=== PATIENT | female | born 1965 | race Caucasian/White ===

== ENCOUNTER 2020-06-22 14:45 | Emergency (ER) | payer OTHER ==
[2020-06-22 17:00] LABS: BASOPHIL 0.8 % (0-2); EOSINOPHIL 0.4 % (0-5); HCT 30.1 % (37.0-47.0); HGB 9.9 g/dl (12.5-16.0); LYMPHOCYTE 45.9 % (15-48); MCH 33.2 pg (25.0-31.0); MCHC 32.9 g/dL (32.0-36.0); MONOCYTE 14.6 % (0-12); NEUTROPHIL 21.1 % (41-80); NRBC 0; PLT 125 K/uL (150-400); RBC 2.98 M/uL (4.20-5.40); RDW 16.5 % (11.5-14.0); WBC 4.7 K/uL (4.0-10.5)
[2020-06-22 17:19] LABS: ALBUMIN 2.3 g/dL (3.4-5.0); BILIRUBIN - TOTAL 0.4 mg/dL (0.2-1.0); BUN/CREAT RATIO (CALC) 23.2 RATIO; CREATININE 0.69 mg/dL (0.51-0.95); GLOBULIN (CALCULATION) 5.5 g/dL; POTASSIUM 3.3 mmol/L (3.5-5.1); TOTAL PROTEIN 7.8 g/dL (6.4-8.2)
[2020-08-20] MEDS ORDERED: OTC HEARTBURN MED (09:25)
[2020-08-20] MEDS ORDERED: ZYRTEC10 M3 PO (09:25)
== END 2020-06-22 20:46 | disposition home or self-care (01) ==
LOC: FER 14:45
PROVIDERS: Nurse Practitioner Family
DX: U07.1 COVID-19 (principal); J12.82 Pneumonia due to coronavirus disease 2019; J45.909 Unspecified asthma, uncomplicated; Z88.6 Allergy status to analgesic agent; Z88.8 Allergy status to other drugs, medicaments and biological substances
CPT/HCPCS: 36415; 80053; 85025; J7050; M0239

== ENCOUNTER → 2020-08-20 | Day surgery (SDC) | payer OTHER ==
[~2020-08-20] MED LIST: OTC HEARTBURN MED; ZYRTEC10 M3 PO
[2020-08-20 09:27] LABS: HCG (URINE) SCREEN NEGATIVE (NEGATIVE)
[2020-08-20 09:46] LABS: HCT 32.1 % (37.0-47.0); HGB 10.3 g/dl (12.5-16.0); MCH 32.2 pg (25.0-31.0); MCHC 32.1 g/dL (32.0-36.0); MCV 100.3 fL (78.0-100.0); PLT 54 K/uL (150-400); WBC 2.4 K/uL (4.0-10.5)
[2020-08-20 10:08] LABS: ALBUMIN 3.5 g/dL (3.4-5.0); BILIRUBIN - TOTAL 0.5 mg/dL (0.2-1.0); BUN/CREAT RATIO (CALC) 25.5 RATIO; CREATININE 0.55 mg/dL (0.51-0.95); GLOBULIN (CALCULATION) 4.1 g/dL; POTASSIUM 4.1 mmol/L (3.5-5.1); TOTAL PROTEIN 7.6 g/dL (6.4-8.2)
== END | disposition home or self-care (01) ==
LOC: FAS 08:54
PROVIDERS: Surgery
DX: C92.A0 Acute myeloid leukemia with multilineage dysplasia, not having achieved remission (principal); D61.818 Other pancytopenia; F41.9 Anxiety disorder, unspecified; J45.909 Unspecified asthma, uncomplicated; K21.9 Gastro-esophageal reflux disease without esophagitis; Z87.891 Personal history of nicotine dependence; Z79.899 Other long term (current) drug therapy; Z88.6 Allergy status to analgesic agent; Z88.8 Allergy status to other drugs, medicaments and biological substances
CPT/HCPCS: 36415; 80053; 84703; J2250; J2704; J7120